=== PATIENT | male | born 1970 | race Hispanic/Latino ===

== ENCOUNTER 2017-02-23 16:30 | Outpatient (CLI) | payer OTHER ==
[2017-02-23 17:37] LABS: Hemoglobin 14.1 g/dL (14.0-18.0)
[2017-02-23 19:02] LABS: Anion Gap 17 mmol/L (10-20); BUN (Urea Nitrogen) 17 mg/dL (8.9-20.6); Calc. Creatinine Clearance 0 mL/min (70-130); Calcium 9.5 mg/dL (7.8-10.44); Carbon Dioxide 23 mmol/L (22-29); Chloride 107 mmol/L (98-107); Estimated GFR-MDRD 87; Glucose 86 mg/dL (70-105); Potassium 4.3 mmol/L (3.5-5.1); Sodium 143 mmol/L (136-145)
[2017-02-24 18:27] LABS: Creatinine, Urine 318.83 mg/dL (63-166)
== END 2017-02-23 16:31 | disposition home or self-care (01) ==
LOC: NAV LAB 16:30
PROVIDERS: ATTEND Internal Medicine Nephrology
DX: N18.1 Chronic kidney disease, stage 1 (principal)
CPT/HCPCS: 80048; 82306; 82570; 84156; 85014; 85018

== ENCOUNTER 2017-03-08 08:48 | Outpatient (CLI) | payer OTHER ==
--- NOTE | 2017-03-08 12:51 | ULT ---
RENAL ULTRASOUND HISTORY: Chronic kidney disease. COMPARISON: None. TECHNIQUE: Longitudinal and transverse imaging of the kidneys is performed. FINDINGS: RIGHT KIDNEY: Slightly limited evaluation due to shadowing. No obvious masses. No hydronephrosis. 5.1 x 6 x 10.9 cm. LEFT KIDNEY: No hydronephrosis. The left kidney measures 12.8 x 6.5 x 5.8 cm. The urinary bladder is unremarkable. IMPRESSION: No hydronephrosis. POS: [facility]
== END 2017-03-08 08:49 | disposition home or self-care (01) ==
LOC: NAV ULT 08:48
PROVIDERS: ATTEND Internal Medicine Nephrology
DX: N18.1 Chronic kidney disease, stage 1 (principal)
CPT/HCPCS: 76770

== ENCOUNTER 2017-10-14 15:54 | Emergency (ER) | payer OTHER ==
[2017-10-14] MEDS ORDERED: Ondansetron HCl/PF 4 MG/2 ML Vial ONE (16:07)
[2017-10-14 16:36] LABS: #Eosinphils 0.1 thou/uL (0.0-0.7); #Lymphocytes 0.3 thou/uL (1.20-3.40); #Monocytes 0.3 thou/uL (0.11-0.59); #Neutrophils 5.5 thou/uL (1.40-6.50); %Basophils 0.7 % (0.0-1.0); %Monocytes 5.3 % (0.0-10.0); %Neutrophils 89.1 % (42.0-75.0); Hemoglobin 15.3 g/dL (14.0-18.0); Mean Corpuscular HGB CONC 33.7 g/dL (32.0-36.0); Mean Platelet Volume 6.9 fL (7.4-10.4); Platelet Count 183 thou/uL (130-400); RBC Distribution Width 12.3 % (11.5-14.5); Red Blood Cell (RBC) Count 5.46 mill/uL (4.70-6.10); White Blood Cell (WBC) Count 6.2 thou/uL (4.8-10.8)
[2017-10-14] MEDS ORDERED: Sodium Chloride 0.9% 1,000 ML ONE (16:36)
[2017-10-14] MEDS ORDERED: Acetaminophen 500 MG TAB ONE (16:36)
[2017-10-14 16:49] LABS: ALT (SGPT) 55 U/L (8-55); AST (SGOT) 33 U/L (5-34); Albumin 4.4 g/dL (3.5-5.0); Alkaline Phosphatase 80 U/L (40-150); Anion Gap 16 mmol/L (10-20); BUN (Urea Nitrogen) 27 mg/dL (8.9-20.6); Bilirubin, Total 0.9 mg/dL (0.2-1.2); Calc. Creatinine Clearance 0 mL/min (70-130); Calcium 9.2 mg/dL (7.8-10.44); Carbon Dioxide 21 mmol/L (22-29); Chloride 108 mmol/L (98-107); Estimated GFR-MDRD 85; Glucose 109 mg/dL (70-105); Potassium 3.9 mmol/L (3.5-5.1); Protein, Total 7.4 g/dL (6.0-8.3); Sodium 141 mmol/L (136-145)
[2017-10-14 17:08] LABS: CKMB 3.8 ng/mL (0-6.6); Troponin I Less than 0.010 ng/mL (< 0.028)
--- NOTE | 2017-10-14 18:48 | RAD ---
SINGLE VIEW OF THE CHEST: 10/14/17 COMPARISON: 12/30/14 HISTORY: Nausea, vomiting and diarrhea. FINDINGS: Single view of the chest shows a normal sized cardiomediastinal silhouette. There is no evidence of c onsolidation, mass, or pleural effusion. The bones are unremarkable. IMPRESSION: No evidence of acute cardiopulmonary disease. POS: [facility]
--- NOTE | 2017-10-14 19:00 | CT ---
CT OF THE BRAIN WITHOUT CONTRAST: 10/14/17 COMPARISON: None HISTORY: Nausea, vomiting and diarrhea. Patient does not feel well. TECHNIQUE: Multiple contiguous axial images were obtained in a CT of the brain without contrast. FINDINGS: The brain is normal in morphology and attenuation without focal lesions or confluent areas of infarct ion. There is no evidence of hydrocephalus, intracranial hemorrhage, or extra-axial fluid collection. The calvarium and overlying soft tissues are unremarkable. The visualized paranasal sinuses and masto id air cells are well aerated. IMPRESSION: No evidence of acute intracranial abnormality. POS: [facility]
== END 2017-10-14 17:45 | disposition home or self-care (01) ==
LOC: NAV ERS 15:54
DX: R11.2 Nausea with vomiting, unspecified (principal); R51 Headache; E78.5 Hyperlipidemia, unspecified; I10 Essential (primary) hypertension; Z79.02 Long term (current) use of antithrombotics/antiplatelets; Z79.899 Other long term (current) drug therapy
CPT/HCPCS: 70450; 71045; 80053; 82553; 83605; 84484; 85025; 93005; 96361; 96374; J2405; J7050

== ENCOUNTER 2020-11-17 18:46 | Emergency (ER) | payer OTHER ==
[2020-11-17] MEDS ORDERED: Acetaminophen 500 MG TAB ONE (19:22)
[2020-11-18 13:28] LABS: SARS-CoV-2 PCR by NAA DETECTED (NotDetected)
== END 2020-11-17 21:19 | disposition home or self-care (01) ==
LOC: NAV ERS 18:46
DX: U07.1 COVID-19 (principal); E78.5 Hyperlipidemia, unspecified; I10 Essential (primary) hypertension; Z79.899 Other long term (current) drug therapy
CPT/HCPCS: 71046; 87635; 87804; U0003; U0005

== ENCOUNTER 2020-11-19 11:27 | Emergency (ER) | payer OTHER ==
[2020-11-19] MEDS ORDERED: Acetaminophen 500 MG TAB ONE (11:58)
[2020-11-19] MEDS ORDERED: Dexamethasone 20 MG/5 ML VIAL ONE (11:58)
[2020-11-19] MEDS ORDERED: Aspirin Chewable 81 MG TAB ONE (11:58)
[2020-11-19] MEDS ORDERED: Ondansetron ODT 4 MG TAB ONE (11:58)
[2020-11-19 12:05] LABS: #Lymphocytes 0.6 thou/uL (1.20-3.40); #Monocytes 0.3 thou/uL (0.11-0.59); #Neutrophils 4.1 thou/uL (1.40-6.50); %Basophils 0.2 % (0.0-1.0); %Eosinophils 0.3 % (0.0-10.0); %Lymphocytes 11.9 % (21.0-51.0); %Monocytes 5.7 % (0.0-10.0); %Neutrophils 81.9 % (42.0-75.0); Hemoglobin 12.6 g/dL (14.0-18.0); Mean Corpuscular HGB CONC 31.3 g/dL (32.0-36.0); Mean Corpuscular Hemoglobin 26.7 pg (27.0-31.0); Mean Corpuscular Volume 85.3 fL (78.0-98.0); Mean Platelet Volume 7.2 fL (7.4-10.4); Platelet Count 158 thou/uL (130-400); RBC Distribution Width 11.2 % (11.5-14.5); Red Blood Cell (RBC) Count 4.72 mill/uL (4.70-6.10); White Blood Cell (WBC) Count 5.1 thou/uL (4.8-10.8)
[2020-11-19 12:26] LABS: ALT (SGPT) 40 U/L (8-55); AST (SGOT) 27 U/L (5-34); Albumin 3.7 g/dL (3.5-5.0); Alkaline Phosphatase 188 U/L (40-110); Anion Gap 12 mmol/L (10-20); BUN (Urea Nitrogen) 10 mg/dL (8.4-25.7); Bilirubin, Total 0.7 mg/dL (0.2-1.2); Calc. Creatinine Clearance 0 mL/min (70-130); Calcium 8.6 mg/dL (7.8-10.44); Carbon Dioxide 24 mmol/L (22-29); Chloride 104 mmol/L (98-107); Globulin 3.4 g/dL (2.4-3.5); Glucose 121 mg/dL (70-105); Potassium 3.8 mmol/L (3.5-5.1); Protein, Total 7.1 g/dL (6.0-8.3); Sodium 136 mmol/L (136-145)
== END 2020-11-19 13:21 | disposition home or self-care (01) ==
LOC: NAV ERS 11:27
DX: U07.1 COVID-19 (principal); E78.5 Hyperlipidemia, unspecified; I10 Essential (primary) hypertension; Z79.899 Other long term (current) drug therapy
CPT/HCPCS: 71045; 80053; 83605; 84484; 85025; 86140; 96372; J1100; Q0162

== ENCOUNTER 2024-03-26 19:18 | Emergency (ER) | payer OTHER ==
[2024-03-26] MEDS ORDERED: Morphine 4 MG/ML VIAL ONE (19:49)
[2024-03-26] MEDS ORDERED: Sodium Chloride 0.9% 1,000 ML ONE (19:49)
[2024-03-26] MEDS ORDERED: Ondansetron PF 4 MG/2 ML Vial ONE (19:49)
[2024-03-26 19:57] LABS: #Basophils 0.1 thou/uL (0.0-0.2); #Eosinphils 0.2 thou/uL (0.0-0.7); #Lymphocytes 1.2 thou/uL (1.20-3.40); #Monocytes 0.6 thou/uL (0.11-0.59); #Neutrophils 3.5 thou/uL (1.40-6.50); %Basophils 1.2 % (0.0-1.0); %Eosinophils 2.9 % (0.0-10.0); %Lymphocytes 21.5 % (21.0-51.0); %Neutrophils 64.4 % (42.0-75.0); Hematocrit 43.8 % (42.0-52.0); Hemoglobin 14.2 g/dL (14.0-18.0); Mean Corpuscular HGB CONC 32.3 g/dL (32.0-36.0); Mean Corpuscular Hemoglobin 27.1 pg (27.0-31.0); Mean Corpuscular Volume 83.9 fl (78.0-98.0); Platelet Count 172 10x3/uL (130-400); RBC Distribution Width 12.1 % (11.5-14.5); Red Blood Cell (RBC) Count 5.22 mill/uL (4.70-6.10); White Blood Cell (WBC) Count 5.5 10x3/uL (4.8-10.8)
[2024-03-26 20:07] LABS: Bilirubin Negative (Negative); Blood, Urine Negative (Negative); Clarity Clear (Clear); Glucose, Urine (Dipstick) Negative (Negative); Ketone, Urine Negative (Negative); Leukocyte Negative (Negative); Nitrite Negative (Negative); Protein, Urine (Dipstick) 100 mg/dL (Neg-Trace); pH, Urine 6.5 (5.0-9.0)
[2024-03-26 20:10] LABS: Troponin I Less than 0.010 ng/mL (< 0.028)
[2024-03-26 20:11] LABS: ALT (SGPT) 39 U/L (8-55); AST (SGOT) 26 U/L (5-34); Albumin 4.2 g/dL (3.5-5.0); Alkaline Phosphatase 67 U/L (40-110); Anion Gap 16 mmol/L (10-20); BUN (Urea Nitrogen) 14 mg/dL (8.4-25.7); Bilirubin, Total 0.5 mg/dL (0.2-1.2); Calc. Creatinine Clearance 0 mL/min (70-130); Calcium 9.3 mg/dL (7.8-10.44); Carbon Dioxide 22 mmol/L (22-29); Chloride 106 mmol/L (98-107); Estimated GFR 103; Globulin 3.1 g/dL (2.4-3.5); Glucose 101 mg/dL (70-105); Lipase 25 U/L (8-78); Potassium 3.8 mmol/L (3.5-5.1); Protein, Total 7.3 g/dL (6.0-8.3); Sodium 140 mmol/L (136-145)
[2024-03-26 20:11] LABS: CAUTI Indications for Culture Dysuria,urgency,freq; WBC/HPF 0-3 HPF (0-3)
[2024-03-26 20:13] LABS: Urine Culture Reflex No No
[2024-03-26] MEDS ORDERED: Pantoprazole 40 MG VIAL ONE (21:05)
[2024-03-26] MEDS ORDERED: Sucralfate 1 GM TAB ONE (21:34)
== END 2024-03-26 22:05 | disposition home or self-care (01) ==
LOC: NAV ERS 19:18
DX: K29.70 Gastritis, unspecified, without bleeding (principal); K76.0 Fatty (change of) liver, not elsewhere classified; I10 Essential (primary) hypertension
CPT/HCPCS: 74177; 80053; 81001; 83690; 84484; 85025; 93005; 96361; 96374; 96375; J2272; J2405; J2470; J7030